=== PATIENT | male | born 1985 | race Two or more races ===

== ENCOUNTER 2021-11-13 07:40 | Outpatient (CLI) | payer OTHER | END 2021-11-13 08:21 | disposition home or self-care (01) | LOC: LAB 07:40 | PROVIDERS: ATTEND Internal Medicine Hematology & Oncology | DX: R50.9 Fever, unspecified (principal) ==

== ENCOUNTER 2021-11-17 14:03 | Outpatient (CLI) | payer OTHER | END 2021-11-17 14:11 | disposition home or self-care (01) | LOC: LAB 14:03 | PROVIDERS: ATTEND Internal Medicine Hematology & Oncology | DX: R05.8 Other specified cough (principal) ==